=== PATIENT | female | born 1945 | race Caucasian/White ===

== ENCOUNTER 2017-11-11 17:19 | Emergency (ER) | payer OTHER ==
[~2017-11-11] VITALS: Ht 170.2 cm; Wt 81.1 kg
[2017-11-11 17:28] VITALS: TEMP 37.4; Ht 170.2 cm; Wt 81.1 kg
[2017-11-11] MEDS ORDERED: ONDANSETRON INJ 2 MG/ML 2 ML VIAL IV STA (18:09)
[2017-11-11] MEDS ORDERED: KETOROLAC TROMETHAMINE 30 MG/ML VIAL IV STA (18:09)
[2017-11-11] MEDS ORDERED: OPTIRAY 320 IV PRN (18:15)
[2017-11-11 18:46] LABS: BASO % 0.1 %; BASO ABS # 0.02 K/uL (0-0.2); EOS % 0.1 %; EOS ABS # 0.01 K/uL (0-0.5); HEMATOCRIT 36.7 % (37-47); HEMOGLOBIN 12.2 g/dL (12.0-16.0); IG# 0.03 K/uL (0.00-0.02); LYMPH % 7.3 %; LYMPH ABS # 1.06 K/uL (1.2-3.4); MEAN CORPUSCULAR HEMOGLOBIN 29.3 pg (25-34); MEAN CORPUSCULAR HGB CONC 33.2 g/dl (32-36); MEAN PLATELET VOLUME 10.5 fL (7.4-10.4); MONO % 7.5 %; MONO ABS # 1.09 K/uL (0.11-0.59); NEUT % 84.8 %; NEUT ABS # 12.26 K/uL (1.4-6.5); PLATELET COUNT 292 K/uL (130-400); RED CELL DISTRIBUTION WIDTH CV 13.8 % (11.5-14.5); RED CELL DISTRIBUTION WIDTH SD 44.6 fL (36.4-46.3); WHITE BLOOD COUNT 14.47 K/uL (4.8-10.8)
[2017-11-11] MEDS ORDERED: MAGN250T3 PO (18:47)
[2017-11-11 18:57] LABS: ISTAT CREATININE 0.6 mg/dl (0.6-1.3); ISTAT IONIZED CALCIUM 1.14 mmol/l (1.12-1.32); ISTAT POTASSIUM 3.8 mEq/L (3.3-5.0)
[2017-11-11] MEDS ORDERED: SODIUM CHLORIDE 0.9% 1000ML 1,000 ML IV STA (19:01)
[2017-11-11 19:06] LABS: ALBUMIN 3.2 gm/dl (3.4-5.0); CALCIUM 8.9 mg/dl (8.5-10.1); CREATININE 0.73 mg/dl (0.60-1.20); POTASSIUM 3.7 mmol/L (3.5-5.1); TOTAL PROTEIN 7.3 gm/dl (6.4-8.2)
--- NOTE | 2017-11-11 19:37 | DIAGNOSTIC IMAGING REPORT ---
CT SCAN OF THE ABDOMEN AND PELVIS WITH IV CONTRAST CLINICAL HISTORY: Left lower quadrant abdominal pain. Abdominal bruit. COMPARISON STUDY: No priors. TECHNIQUE: Following the IV administration of 116 cc of Optiray 320, CT scan of the abdomen and pelvis is performed from the lung bases to the proximal femora. Images are reviewed in the axial, sagittal, and coronal planes. IV contrast was administered without complication. A dose lowering technique was utilized adhering to the principles of ALARA. CT DOSE: 618.80 mGy.cm FINDINGS: Lung bases: The heart is normal in size and without pericardial effusion. A fat-containing Bochdalek hernia is noted at the left lung base. The lung bases are otherwise clear. Liver: The contrast-enhanced liver is normal in size, contour, and attenuation. There is no intrahepatic biliary ductal dilatation. The hepatic veins and portal veins are patent. Scattered subcentimeter hepatic hypodensities likely represent cysts but are too small for definitive characterization. Gallbladder: Unremarkable. Spleen: Normal in size and attenuation. Pancreas: A 9 mm ovoid water attenuation lesion in the distal pancreatic body seen on image #130 is typical appearance for a small sidebranch IPMN. The pancreas is otherwise normal in appearance. Adrenal glands: A 1.7 cm low-attenuation right adrenal nodule likely represents an adenoma but cannot definitively characterized due to the presence of IV contrast. The left adrenal gland is normal in appearance. Kidneys: The contrast enhanced kidneys are normal in size and without hydronephrosis. The kidneys enhance symmetrically. A subcentimeter cortical hypodensity in the left kidney likely represents a cyst but is too small for definitive characterization. Abdominal vasculature: The abdominal aorta is normal in course and caliber noting scattered foci of atherosclerotic calcification. Bowel: There is mild to moderate sigmoid diverticulosis. There is wall thickening and edema with surrounding pericolonic inflammation and trace fluid involving the sigmoid colon consistent with acute diverticulitis. There is no evidence of diverticular abscess. No bowel obstruction is seen. Some mucosal fat deposition throughout the colon is nonspecific but suggests chronic inflammation. The appendix is well-visualized and normal. Peritoneum: There is no intraperitoneal free air or abdominal ascites. There is a small fat-containing umbilical hernia. Soft tissues: A 2.6 cm sebaceous cyst is noted in the ventral abdominal wall seen on image #134. Lymphadenopathy: None. Pelvic viscera: The bladder is normal as visualized. The uterus is enlarged and heterogeneous. There are uterine masses, some which are calcified. These are typical appearance for fibroids. No adnexal lesion is seen. Skeletal structures: The skeletal structures are osteopenic. Kaoh-tn-[id number] lumbosacral spondylosis is observed. Large posterior disc bulges are noted at L3-L4 and L4-L5. No lytic or blastic lesions are seen. IMPRESSION: 1. There is sigmoid diverticulosis with evidence of acute sigmoid diverticulitis. There is no intraperitoneal free air or evidence of abscess. 2. The abdominal aorta is normal in course and caliber. 3. There are numerous uterine masses, some of which are densely calcified. Although pathologically indeterminant these are typical in appearance for fibroids. 4. A 9 mm ovoid cystic lesion in the distal pancreatic body is typical in appearance for a small sidebranch IPMN. 5. A 1.7 cm low-attenuation right adrenal nodule likely represents an adenoma but cannot be definitively characterized due to the presence of IV contrast. 6. Additional findings as above. Electronically signed by: Jhon Gauthier M.D. 11/11/2017 7:36 PM Dictated Date/Time: 11/11/2017 7:27 PM
[2017-11-11] MEDS ORDERED: METRONIDAZOLE 250 MG TAB PO STA (19:49)
[2017-11-11] MEDS ORDERED: CIPROFLOXACIN 250 MG TAB PO STA (19:49)
[2017-11-11] MEDS ORDERED: SODIUM CHLORIDE 0.9% 500ML 500 ML IV STA (20:02)
--- NOTE | 2017-11-11 20:11 | EMERGENCY ROOM VISIT NOTE ---
History Report prepared by Ashly: Mai Marion Under the Supervision of: Dr. Geovanny Santiago M.D. First contact with patient: 18:02 Chief Complaint: ABDOMINAL PAIN Stated Complaint: ABD PAIN,GENERLIZED,ABD BRUIT Nursing Triage Summary: patient reports she saw a PA and PA heard an abdominal bruit and recommended patient to be seen here,patient reports abdominal pain since yesterday History of Present Illness The patient is a 71 year old female with a past medical history of basal cell carcinoma who presents to the ED with a cc of intermittent abdominal pain beginning yesterday afternoon. The patient states that she has been experiencing an abdominal soreness. She states that it is worse when she is up moving and better when she lies down on her side. She reports that she changed her salad to add more roughage and thought maybe her abdominal pain is from that. The patient states that she went to [facility] and sent her here because they thought that they heard abdominal bruits. She notes that her last normal bowel movement was this morning and was small and soft. Positive burping and gas. Negative rash, nausea, vomiting, recent heavy lifting, recent strains, recent falls, recent injury, and a history of any abdominal surgeries. The patient notes that she occasionally drinks wine. Source of History: patient Onset: yesterday afternoon Position: abdomen Quality: other (soreness) Timing: intermittent Modifying Factors (Worsening): movement Modifying Factors (Relieving): other (lying on her side) Associated Symptoms: No nausea, No vomiting, No rash Note: The patient complains of burping and having gas. The patient denies recent heavy lifting, recent strains, recent falls, and recent injury. Review of Systems See HPI for pertinent positives and negatives. A total of ten systems were reviewed and were otherwise negative. Past Medical & Surgical Medical Problems: (1) No Known Active Medical Problems Surgical Problems: (1) History of basal cell carcinoma excision Family History FH: lung cancer Social History Smoking Status: Never Smoker Smokeless Tobacco Use: No Alcohol Use: occasionally Marital Status: Housing Status: lives with significant other Occupation Status: employed Current/Historical Medications Scheduled Aspirin (Aspirin Ec), 81 MG PO Q2D Calcium Carbonate-Vitamin D (Calcium 600 + D), 1 TAB PO DAILY Magnesium (Magnesium 250 mg), 1 TAB PO DAILY Vitamin E (Vitamin E), 400 UNITS PO DAILY Allergies Coded Allergies: No Known Allergies (Unverified , 03/14/16) Physical Exam Vital Signs Date Time Temp Pulse Resp B/P (MAP) Pulse Ox O2 Delivery O2 Flow Rate FiO2 11/11/17 21:16 84 20 142/77 96 Room Air 11/11/17 20:38 88 20 125/68 97 Room Air 11/11/17 19:45 86 20 131/70 97 Room Air 11/11/17 17:28 37.4 108 18 163/86 96 Room Air Physical Exam GENERAL: Awake, alert, well-appearing, NAD, wearing glasses. HENT: Normocephalic, atraumatic. EYES: Normal conjunctiva. Sclera non-icteric. PERRL. No anisocoria. NECK: Supple. No nuchal rigidity. FROM. RESPIRATORY: CTAB, no rhonchi, wheezing, crackles CARDIAC: RRR, systolic ejection murmur. ABDOMEN: Soft, nondistended, LLQ discomfort, not peritonitic, BS+, negative obturators, negative psoas. BACK: No CVA TTP MSK: No chest wall TTP, no LE edema NEURO: GCS 15, CN 2-12 intact, moves all 4s on command SKIN: No rash or jaundice noted. Medical Decision & Procedures ER Provider Diagnostic Interpretation: Radiology results as stated below per my review and radiologist interpretation: CT SCAN OF THE ABDOMEN AND PELVIS WITH IV CONTRAST CLINICAL HISTORY: Left lower quadrant abdominal pain. Abdominal bruit. COMPARISON STUDY: No priors. TECHNIQUE: Following the IV administration of 116 cc of Optiray 320, CT scan of the abdomen and pelvis is performed from the lung bases to the proximal femora. Images are reviewed in the axial, sagittal, and coronal planes. IV contrast was administered without complication. A dose lowering technique was utilized adhering to the principles of ALARA. CT DOSE: 618.80 mGy.cm FINDINGS: Lung bases: The heart is normal in size and without pericardial effusion. A fat-containing Bochdalek hernia is noted at the left lung base. The lung bases are otherwise clear. Liver: The contrast-enhanced liver is normal in size, contour, and attenuation. There is no intrahepatic biliary ductal dilatation. The hepatic veins and portal veins are patent. Scattered subcentimeter hepatic hypodensities likely represent cysts but are too small for definitive characterization. Gallbladder: Unremarkable. Spleen: Normal in size and attenuation. Pancreas: A 9 mm ovoid water attenuation lesion in the distal pancreatic body seen on image #130 is typical appearance for a small sidebranch IPMN. The pancreas is otherwise normal in appearance. Adrenal glands: A 1.7 cm low-attenuation right adrenal nodule likely represents an adenoma but cannot definitively characterized due to the presence of IV contrast. The left adrenal gland is normal in appearance. Kidneys: The contrast enhanced kidneys are normal in size and without hydronephrosis. The kidneys enhance symmetrically. A subcentimeter cortical hypodensity in the left kidney likely represents a cyst but is too small for definitive characterization. Abdominal vasculature: The abdominal aorta is normal in course and caliber noting scattered foci of atherosclerotic calcification. Bowel: There is mild to moderate sigmoid diverticulosis. There is wall thickening and edema with surrounding pericolonic inflammation and trace fluid involving the sigmoid colon consistent with acute diverticulitis. There is no evidence of diverticular abscess. No bowel obstruction is seen. Some mucosal fat deposition throughout the colon is nonspecific but suggests chronic inflammation. The appendix is well-visualized and normal. Peritoneum: There is no intraperitoneal free air or abdominal ascites. There is a small fat-containing umbilical hernia. Soft tissues: A 2.6 cm sebaceous cyst is noted in the ventral abdominal wall seen on image #134. Lymphadenopathy: None. Pelvic viscera: The bladder is normal as visualized. The uterus is enlarged and heterogeneous. There are uterine masses, some which are calcified. These are typical appearance for fibroids. No adnexal lesion is seen. Skeletal structures: The skeletal structures are osteopenic. Ojaf-ss-onoebtbz lumbosacral spondylosis is observed. Large posterior disc bulges are noted at L3-L4 and L4-L5. No lytic or blastic lesions are seen. IMPRESSION: 1. There is sigmoid diverticulosis with evidence of acute sigmoid diverticulitis. There is no intraperitoneal free air or evidence of abscess. 2. The abdominal aorta is normal in course and caliber. 3. There are numerous uterine masses, some of which are densely calcified. Although pathologically indeterminant these are typical in appearance for fibroids. 4. A 9 mm ovoid cystic lesion in the distal pancreatic body is typical in appearance for a small sidebranch IPMN. 5. A 1.7 cm low-attenuation right adrenal nodule likely represents an adenoma but cannot be definitively characterized due to the presence of IV contrast. 6. Additional findings as above. Electronically signed by: Jhon Gauthier M.D. 11/11/2017 7:36 PM Dictated Date/Time: 11/11/2017 7:27 PM Laboratory Results 11/11/17 18:35 Red Blood Count 4.17, Mean Corpuscular Volume 88.0, Mean Corpuscular Hemoglobin 29.3, Mean Corpuscular Hemoglobin Concent 33.2, Mean Platelet Volume 10.5, Neutrophils (%) (Auto) 84.8, Lymphocytes (%) (Auto) 7.3, Monocytes (%) (Auto) 7.5, Eosinophils (%) (Auto) 0.1, Basophils (%) (Auto) 0.1, Neutrophils # (Auto) 12.26, Lymphocytes # (Auto) 1.06, Monocytes # (Auto) 1.09, Eosinophils # (Auto) 0.01, Basophils # (Auto) 0.02 11/11/17 18:35 Test 11/11/17 18:10 11/11/17 18:35 11/11/17 18:44 Urine Color YELLOW Urine Appearance CLEAR (CLEAR) Urine pH 5.5 (4.5-7.5) Urine Specific [place] 1.017 (1.000-1.030) Urine Protein TRACE (NEG) Urine Glucose (UA) NEG (NEG) Urine Ketones 2+ (NEG) Urine Occult Blood NEG (NEG) Urine Nitrite NEG (NEG) Urine Bilirubin NEG (NEG) Urine Urobilinogen NEG (NEG) Urine Leukocyte Esterase NEG (NEG) Urine WBC (Auto) 1-5 /hpf (0-5) Urine RBC (Auto) 0-4 /hpf (0-4) Urine Hyaline Casts (Auto) 0 /lpf (0-5) Urine Epithelial Cells (Auto) 10-20 /lpf (0-5) Urine Bacteria (Auto) NEG (NEG) White Blood Count 14.47 K/uL (4.8-10.8) Red Blood Count 4.17 M/uL (4.2-5.4) Hemoglobin 12.2 g/dL (12.0-16.0) Hematocrit 36.7 % (37-47) Mean Corpuscular Volume 88.0 fL (80-100) Mean Corpuscular Hemoglobin 29.3 pg (25-34) Mean Corpuscular Hemoglobin Concent 33.2 g/dl (32-36) Platelet Count 292 K/uL (130-400) Mean Platelet Volume 10.5 fL (7.4-10.4) Neutrophils (%) (Auto) 84.8 % Lymphocytes (%) (Auto) 7.3 % Monocytes (%) (Auto) 7.5 % Eosinophils (%) (Auto) 0.1 % Basophils (%) (Auto) 0.1 % Neutrophils # (Auto) 12.26 K/uL (1.4-6.5) Lymphocytes # (Auto) 1.06 K/uL (1.2-3.4) Monocytes # (Auto) 1.09 K/uL (0.11-0.59) Eosinophils # (Auto) 0.01 K/uL (0-0.5) Basophils # (Auto) 0.02 K/uL (0-0.2) RDW Standard Deviation 44.6 fL (36.4-46.3) RDW Coefficient of Variation 13.8 % (11.5-14.5) Immature Granulocyte % (Auto) 0.2 % Immature Granulocyte # (Auto) 0.03 K/uL (0.00-0.02) Est Creatinine Clear Calc Drug Dose 79.7 ml/min Estimated GFR () 97.4 Estimated GFR (Non- 84.0 BUN/Creatinine Ratio 14.1 (10-20) Calcium Level 8.9 mg/dl (8.5-10.1) Total Bilirubin 0.5 mg/dl (0.2-1) Direct Bilirubin 0.2 mg/dl (0-0.2) Aspartate Amino Transf (AST/SGOT) 11 U/L (15-37) Alanine Aminotransferase (ALT/SGPT) 17 U/L (12-78) Alkaline Phosphatase 81 U/L (45-117) Troponin I < 0.015 ng/ml (0-0.045) Total Protein 7.3 gm/dl (6.4-8.2) Albumin 3.2 gm/dl (3.4-5.0) Lipase 84 U/L (73-393) Bedside Hemoglobin 12.2 g/dl (12.0-16.0) Bedside Hematocrit 36 % (37-47) Bedside Sodium 139 mEq/L (135-144) Bedside Potassium 3.8 mEq/L (3.3-5.0) Bedside Chloride 101 mEq/L (101-112) Bedside Total CO2 26 mEq/l (24-31) Anion Gap 17.0 mmol/L (16-25) Bedside Blood Urea Nitrogen 9 mg/dl (7-18) Bedside Creatinine 0.6 mg/dl (0.6-1.3) Bedside Glucose (other) 111 mg/dl (70-99) Bedside Ionized Calcium ([place]) 1.14 mmol/l (1.12-1.32) Laboratory results reviewed by me Medications Administered Medications (Trade) Dose Ordered Sig/Cindy Route Start Time Stop Time Status Last Admin Dose Admin Ondansetron HCl (Zofran Inj) 4 mg NOW STAT IV 11/11/17 18:09 11/11/17 18:12 DC 11/11/17 19:01 4 MG Ketorolac Tromethamine (Toradol Inj) 30 mg NOW STAT IV 11/11/17 18:09 11/11/17 18:12 DC 11/11/17 19:01 30 MG Ciprofloxacin (Ciprofloxacin Tab) 500 mg ONE STAT PO 11/11/17 19:49 11/11/17 19:51 DC 11/11/17 20:23 500 MG Metronidazole (Flagyl Tab) 500 mg NOW STAT PO 11/11/17 19:49 11/11/17 19:51 DC 11/11/17 20:24 500 MG Sodium Chloride 500 ml @ 999 mls/hr Q31M STAT IV 11/11/17 20:02 11/11/17 20:32 DC 11/11/17 20:27 999 MLS/HR ECG Per My Interpretation Indication: abdominal pain Rate (beats per minute): 85 Rhythm: normal sinus Findings: no ectopy, other (normal intervals, normal axis) ED Course 1804: The patient was evaluated in room B2. A complete history and physical exam was performed. 1950: I reevaluated the patient and updated her on her results thus far. 2110: I reevaluated the patient. Discussed results and discharge instructions: She verbalized understanding and agreement. The patient is ready for discharge. Medical Decision The patient is a 71 year old female with a past medical history of basal cell carcinoma who presents to the ED with a cc of intermittent abdominal pain beginning yesterday afternoon. Nursing notes reviewed. Ancillary studies and prior records reviewed. Differential diagnosis: Etiologies such as appendicitis, diverticulitis, PUD, biliary pathology, UTI, pancreatitis, obstruction, mesenteric ischemia, aortic pathology, infections, inflammatory bowel disease, renal colic, as well as others were entertained. Patient was seen and evaluated the bedside. Patient does not have any medical problems the exception of a prior history of basal cell carcinoma status post excision. The patient has complained of some abdominal discomfort. Patient denies any nausea vomiting or chest pain. Patient has no shortness of breath or lower extremity swelling. The patient does have some reproducible left lower quadrant discomfort. Patient is not peritonitic. Patient had seen a physicians therapeutic assistant who is concerned about a possible abdominal bruit. She was referred here for further evaluation and treatment. She did have blood work completed along with EKG, troponin, CT abdomen pelvis and the patient was given medications for his control. Upon reassessment the patient was feeling improved. The patient aorta was of normal caliber. Patient was noted to have diverticulitis. I believe the patient would be suitable for outpatient follow-up and treatment at this time as the patient is feeling much improved does have a mild white count but is afebrile. Patient was told to have a low threshold to return to the emergency department. Patient was given a first dose of Cipro and Flagyl and placed on this as an outpatient. Patient was given strict follow-up, discharge, and return precautions. All questions were answered. Patient was deemed suitable for outpatient follow-up at this time. Patient agreed with the plan of care and was safely discharged home. Medication Reconcilliation Current Medication List: was personally reviewed by me Blood Pressure Screening Patient's blood pressure: Elevated blood pressure Blood pressure disposition: Elevated BP felt to be situational Impression Primary Impression: Diverticulitis large intestine Additional Impression: Uterine fibroid Scribe Attestation The scribe's documentation has been prepared under my direction and personally reviewed by me in its entirety. I confirm that the note above accurately reflects all work, treatment, procedures, and medical decision making performed by me. Departure Information Dispostion Home / Self-Care Prescriptions Metronidazole (FLAGYL) 500 Mg Tab 500 MG PO TID for 7 Days, #21 TAB Prov: Geovanny Santiago M.D. 11/12/17 Ciprofloxacin Hcl (CIPRO) 500 Mg Tab 500 MG PO BID for 7 Days, #14 TAB Prov: Geovanny Santiago M.D. 11/12/17 Referrals Iva Gómez,C.R.N.P. (PCP) Forms Call Back Authorization, HOME CARE DOCUMENTATION FORM, IMPORTANT VISIT INFORMATION Patient Instructions Diverticulitis Dc, ED Fibroids, My [facility] Additional Instructions Please return to the emergency department if you have worsening or recurrent symptoms not amenable to at-home treatment. Please call for a follow-up appointment with her primary care physician. Please take your medications as prescribed. If you have other concerns and/or complaints please feel free to also call your primary care physician's office or return the ED for further evaluation, management, and treatment. You may take tylenol 650 mg every 6 hours as needed for pain/fever unless told by your physician to not take it or have liver problems. Take your medications as prescribed. If taking an antibiotic consider taking a probiotic and/or eating yogurt, but at the least, please take with food as it can cause upset stomach. You have been examined and treated today on an emergency basis only. This is not a substitute for, or an effort to provide, complete comprehensive medical care. It is impossible to recognize and treat all injuries or illnesses in a single emergency department visit. It is therefore important that you follow up closely with [facility], your PCP, and/or your specialist(s). Call as soon as possible for an appointment. Thank you for your time and consideration. I look forward to speaking with you again soon. Please don't hesitate to call us if you have any questions. Problem Qualifiers Primary Impression: Diverticulitis large intestine Diverticulitis bleeding: without bleeding Diverticulitis complication: without perforation or abscess Qualified Codes: K57.32 - Diverticulitis of large intestine without perforation or abscess without bleeding Additional Impression: Uterine fibroid Uterine leiomyoma location: unspecified location Qualified Codes: D25.9 - Leiomyoma of uterus, unspecified
[2017-11-11] MEDS ORDERED: VITA1TAB4 PO (20:36)
[2017-11-11] MEDS ORDERED: ASPI81TA28 PO (20:36)
[2017-11-11] MEDS ORDERED: CALC-20 PO (20:36)
[2017-11-11 21:16] VITALS: BP 142/77; PULSE 84; O2SAT 96
[2017-11-12] MEDS ORDERED: METR500T PO (00:43)
[2017-11-12] MEDS ORDERED: CIPR-255 PO (00:43)
== END 2017-11-11 21:27 | disposition home or self-care (01) ==
LOC: C.EDB 17:20
DX: K57.32 Diverticulitis of large intestine without perforation or abscess without bleeding (principal); D25.9 Leiomyoma of uterus, unspecified; R14.3 Flatulence; Z79.82 Long term (current) use of aspirin